=== PATIENT | male | born 1965 | race African-American/Black ===

== ENCOUNTER 2022-05-10 09:12 | Emergency (ER) | payer OTHER, MEDICAID ==
[~2022-05-10] VITALS: Ht 177.8 cm; Wt 79.0 kg
[2022-05-10 09:55] VITALS: BP 127/80
[2022-05-10] MEDS ORDERED: TETANUS, DIPHTHERIA, PERTUSSIS VAC/PF 0.5ML (>10YR OLD) IM ONE (10:00)
[2022-05-10 11:07] LABS: BASOPHILS % 1.2 % (0.0-2.0); EOSINOPHILS % 3.8 % (0.0-5.0); HEMATOCRIT. 36.1 % (42.0-52.0); HEMOGLOBIN. 11.9 g/dL (14.0-18.0); LYMPHOCYTES % 36.6 % (20.0-50.0); MEAN CORPUSCULAR HEMOGLOBIN 33.6 pg (28.0-32.0); MEAN CORPUSCULAR VOLUME 101.8 fL (80.0-94.0); MEAN PLATELET VOLUME 7.4 fl (7.4-10.4); MONOCYTES % 10.1 % (2.0-8.0); NEUTROPHILS % 48.3 % (40.0-76.0); PLATELET 335 x1000/uL (130-400); RED BLOOD CELL COUNT 3.55 mill/uL (4.7-6.1); RED CELL DISTRIBUTION WIDTH 15.1 % (11.6-14.6)
[2022-05-10 11:15] LABS: CHLORIDE 111 mEq/L (98-107)
[2022-05-10 12:00] LABS: ETHANOL BLOOD 387 mg/dL
== END 2022-05-10 11:30 | disposition left against medical advice (07) ==
LOC: ER 09:28
DX: S09.8XXA Other specified injuries of head, initial encounter (principal); T51.91XA Toxic effect of unspecified alcohol, accidental (unintentional), initial encounter; F10.129 Alcohol abuse with intoxication, unspecified; F17.210 Nicotine dependence, cigarettes, uncomplicated; Y90.8 Blood alcohol level of 240 mg/100 ml or more; W01.0XXA Fall on same level from slipping, tripping and stumbling without subsequent striking against object, initial encounter; Y93.89 Activity, other specified; Y92.9 Unspecified place or not applicable; Z71.6 Tobacco abuse counseling
CPT/HCPCS: 36415; 80053; 80320; 85025; 90715; 99284; 99406; G0480

== ENCOUNTER 2023-03-09 09:38 | Emergency (ER) | payer MEDICAID, OTHER ==
[~2023-03-09] VITALS: Ht 185.4 cm; Wt 82.0 kg
[2023-03-09 10:00] LABS: EOSINOPHILS % 1.8 % (0.0-5.0); HEMATOCRIT. 34.8 % (42.0-52.0); HEMOGLOBIN. 11.4 g/dL (14.0-18.0); LYMPHOCYTES % 44.6 % (20.0-50.0); MEAN CORPUSCULAR HEMOGLOBIN 34.6 pg (28.0-32.0); MEAN CORPUSCULAR VOLUME 105.1 fL (80.0-94.0); MEAN PLATELET VOLUME 7.8 fl (7.4-10.4); MONOCYTES % 13.8 % (2.0-8.0); NEUTROPHILS % 38.8 % (40.0-76.0); PLATELET 173 x1000/uL (130-400); RED BLOOD CELL COUNT 3.31 mill/uL (4.7-6.1); RED CELL DISTRIBUTION WIDTH 14.2 % (11.6-14.6)
[2023-03-09 10:09] LABS: CHLORIDE 112 mEq/L (98-107)
[2023-03-09 10:21] LABS: ETHANOL BLOOD 458 mg/dL
[2023-03-09 12:30] VITALS: BP 151/81
[2023-03-09] MEDS ORDERED: OLANZAPINE 10 MG/VIAL IM ONE (12:45)
== END 2023-03-09 14:25 | disposition left against medical advice (07) ==
LOC: ER 09:38 → EDBEDREQ 13:30 → EDBEDREQTM 13:30 → EDBEDREQ 13:39 → ER 14:25 → CANBEDREQ 14:28
DX: R55 Syncope and collapse (principal); F10.129 Alcohol abuse with intoxication, unspecified; Y90.8 Blood alcohol level of 240 mg/100 ml or more
CPT/HCPCS: 36415; 70450; 71045; 72125; 80053; 80320; 83880; 84484; 85025; 93005; 96372; 99285; J3490; Z7610; G0480